=== PATIENT | male | born 1995 | race Hispanic/Latino ===

== ENCOUNTER 2017-06-24 09:01 | Day surgery (SDC) | payer OTHER ==
[~2017-06-24 09:01] MED LIST: ANCEF/STERILE WATER 2 GM/20 ML IV NR; HEPARIN SUB-Q NR; MARCAINE 0.25% INFILTRATI ONE; NACL 0.9% IR ONE
[2017-06-24] MEDS ORDERED: ZOFRAN IV PRN (10:01)
[2017-06-24] MEDS ORDERED: MORPHINE IV PRN (10:01)
--- NOTE | 2017-06-24 10:02 | Anesthesia Day of Surgery ---
Anesthesia Day of Surgery - Day of Surgery Patient Examined: Yes Patient is NPO: Yes Yandel's Test: N/A
--- NOTE | 2017-06-24 10:06 | Anesthesia Consultation ---
Anesthesia Consult and Med Hx Date of service: 06/24/17 - Airway Anesthetic Teeth Evaluation: Good ROM Head & Neck: Adequate Mental/Hyoid Distance: Adequate Mallampati Class: Class II Intubation Access Assessment: Probably Good - Pulmonary Exam CTA: Yes - Cardiac Exam Cardiac Exam: RRR - Pre-Operative Health Status ASA Pre-Surgery Classification: ASA2 Proposed Anesthetic Plan: General - Pulmonary Hx Smoking: Yes (VAPES OCCASSIONALLY) Hx Asthma: No - Cardiovascular System Hx Hypertension: No Hx Heart Murmur: Yes ( A CHILD) - Central Nervous System Hx Psychiatric Problems: No - Other Systems Hx Alcohol Use: Yes (VERY RARE) Hx Substance Use: Yes (MARIJUANA YESTERDAY) Hx Cancer: No Hx Obesity: Yes (BMI 39.5)
[2017-06-24] MEDS ORDERED: LACTATED RINGERS 1,000 ML IV SCH (11:00)
[2017-06-24] MEDS ORDERED: PEPCID PO NR (11:00)
[2017-06-24] MEDS ORDERED: PEPCID IV NR (11:00)
[2017-06-24] MEDS ORDERED: VERSED IV NR (11:00)
[2017-06-24] MEDS ORDERED: ZOFRAN IV NR (11:00)
[2017-06-24] MEDS ORDERED: TRANSDERM-SCOP TD NR (11:00)
[2017-06-24] MEDS ORDERED: MARCAINE 0.25% INFILTRATI ONE ×2 (11:03→11:37)
[2017-06-24] MEDS ORDERED: ZEMURON IV ONE (11:06)
[2017-06-24] MEDS ORDERED: DIPRIVAN 10 MG/ML IV ONE (11:06)
[2017-06-24] MEDS ORDERED: DILAUDID ONE (11:06)
[2017-06-24] MEDS ORDERED: XYLOCAINE MPF 2% ONE (11:08)
[2017-06-24] MEDS ORDERED: NEO SYNEPHRINE/NS Syringe(OR USE) IV ONE (11:45)
[2017-06-24] MEDS ORDERED: ZOFRAN ONE (11:48)
[2017-06-24] MEDS ORDERED: DECADRON ONE (11:48)
[2017-06-24] MEDS ORDERED: NEOSTIGMINE ONE (11:53)
[2017-06-24] MEDS ORDERED: ROBINUL ONE (11:53)
[2017-06-24] MEDS ORDERED: LACTATED RINGERS 1,000 ML ONE (12:01)
[2017-06-24] MEDS ORDERED: NACL 0.9% IR ONE (12:02)
--- NOTE | 2017-06-24 12:03 | Short Stay Summary ---
Short Stay Documentation Date of service: 06/24/17 - History H&P: obtained from office - Allergies and Medications Current Medications: Allergies No Known Allergies Allergy (Verified 06/20/17 16:30) Home Medications Medication Instructions Recorded Confirmed Last Taken Type Guaifen/Phenyleph/Acetaminophn 1 each PO Q6H 06/20/17 06/24/17 3 Days Ago History [Tylenol Sinus Severe Caplet] ~06/21/17 Omeprazole Magnesium [PriLOSEC Otc] 20 mg PO BID 06/20/17 06/20/17 06/22/17 History Ondansetron [Zofran TAB] 4 mg PO Q8HR PRN 06/20/17 06/20/17 06/22/17 History Active Medications Cefazolin Sodium (Ancef/Sterile Water 2 Gm/20 Ml) 2 gm IV PREOP NR Stop: 06/24/17 23:59 Famotidine (Pepcid) 20 mg IV PREOP NR Stop: 06/24/17 23:00 Last Admin: 06/24/17 10:50 Dose: 20 mg Heparin Sodium (Porcine) (Heparin) 5,000 unit SUB-Q PREOP NR Stop: 06/24/17 23:59 Last Admin: 06/24/17 10:55 Dose: 5,000 unit Lactated Ringer's (Lactated Ringers) 1,000 mls @ 75 mls/hr IV DIRECT ALTON Last Admin: 06/24/17 10:45 Dose: 75 mls/hr Midazolam HCl (Versed) 2 mg IV PREOP NR Stop: 06/24/17 23:59 Last Admin: 06/24/17 10:45 Dose: 2 mg Morphine Sulfate (Morphine) 2 mg IV Q10MIN PRN PRN Reason: Pain, Moderate (4-6) Ondansetron HCl (Zofran) 4 mg IV PREOP NR Stop: 06/24/17 23:00 Last Admin: 06/24/17 10:48 Dose: 4 mg Scopolamine (Transderm-Scop) 1 each TD PREOP NR Stop: 06/24/17 23:00 Last Admin: 06/24/17 10:50 Dose: 1 each - Brief post op/procedure progress note Date of procedure: 06/24/17 Pre-op diagnosis: Biliary dyskinesia Post-op diagnosis: same Procedure: Lap cholecystectomy Anesthesia: GETA, local Surgeon: MIGUEL SORTO Tobacco Feeder Catcher: ANNETTE SOTELO Estimated blood loss: none Pathology: list (gallbladder) Specimen disposition: to lab Condition: stable - Disposition Condition at discharge: Good Disposition: - TO HOME OR SELFCARE Short Stay Discharge Plan Activity: no restrictions Diet: regular Wound: remove dressing (06/26/17 and then may shower) Follow up with: SEBASTIEN ALEXANDER MD [Primary Care Provider] - 7 Days MIGUEL SORTO MD [Staff Physician] - 7 Days Prescriptions: oxyCODONE /ACETAMINOPHEN [Percocet 5/325] 1 - 2 tab PO Q4HR PRN #30 tab PRN Reason: Pain Promethazine [Phenergan TAB] 25 mg PO Q6HR PRN #10 tab PRN Reason: Nausea
[2017-06-24] MEDS ORDERED: PERCOCET 5/325 PO PRN (12:52)
[2017-06-24] MEDS ORDERED: PHENERGAN PO NR (14:00)
[2017-06-24 14:27] VITALS: BP 130/71
--- NOTE | 2017-06-24 20:11 | Operative Report ---
PREOPERATIVE DIAGNOSIS: Biliary dyskinesia. POSTOPERATIVE DIAGNOSIS: Biliary dyskinesia. PROCEDURE: Laparoscopic cholecystectomy. SURGEON: Jus Mckenna MD ARCHEOLOGIST CLASSICAL: Mj Mullins MD ANESTHESIA: General and local. ESTIMATED BLOOD LOSS: Minimal. SPECIMEN: Gallbladder. COMPLICATIONS: None. INDICATIONS: This is a 22-year-old gentleman who has a workup consistent with biliary dyskinesia, presents now for a laparoscopic cholecystectomy. OPERATIVE COURSE: The patient was brought to the operating room, identified, and placed in the supine position. General anesthesia was achieved. His abdomen was prepped and draped in usual manner. Prior to all incisions, the area was injected with local. A supraumbilical 5 mm incision was made using a Veress needle technique. The abdomen was insufflated to 15 mmHg pressure. A 5 mm trocar was inserted using a 30-degree 5-mm telescope. The other trocars were placed under direct vision, which included a 10 mm epigastric port site and two 5 mm right lateral ports. The gallbladder was grasped and elevated, tented up the triangle of Calot and then dissected out the cystic duct and artery until they were clearly going to the gallbladder. We placed clips in the duct proximally and distally, clips in the artery proximally and distally and then transected. The gallbladder was then removed from the liver bed using electrocautery and placed in an EndoCatch bag and delivered through the epigastric port site. The liver bed was hemostatic at the end of procedure. The clips in good position. The ports removed under direct vision. No signs of bleeding from the port sites. We then evacuated the CO2 and then closed all the incisions with a 4-0 Vicryl suture, Steri-Strips and bandage. JOB# [id number] RAMA/LIZBET
--- NOTE | 2017-06-24 20:59 | Post Anesthesia Evaluation ---
- Post Anesthesia Evaluation Patient Participated: Yes Airway Patent: Yes Stable Respiratory Function: Yes Nausea/Vomiting: No Temp > 96.8F: Yes Pain Manageable: Yes Adequeate Hydration: Yes Anesthesia Complications: No Block Receding Appropriately: Not Applicable Patient on Ventilator: No
== END 2017-06-24 14:42 | disposition home or self-care (01) ==
LOC: OR 09:01
PROVIDERS: ATTEND Surgery
DX: K81.1 Chronic cholecystitis (principal); K82.8 Other specified diseases of gallbladder; E66.9 Obesity, unspecified; F17.200 Nicotine dependence, unspecified, uncomplicated; Z68.39 Body mass index [BMI] 39.0-39.9, adult
CPT/HCPCS: 47562; 88304; J0690; J1100; J1170; J1644; J2250; J2270; J2370; J2405; J2704; J2710; J7120; A4217; Q0169